=== PATIENT | male | born 1980 | race Two or more races ===

== ENCOUNTER → 2018-05-29 | Outpatient (CLI) | payer OTHER | LOC: M RAD 10:56 | DX: M47.892 Other spondylosis, cervical region (principal); M47.896 Other spondylosis, lumbar region | CPT/HCPCS: 72052 ==

== ENCOUNTER 2018-12-14 08:27 | Day surgery (SDC) | payer OTHER ==
[~2018-12-14] VITALS: Ht 165.1 cm; Wt 76.7 kg
[~2018-12-14 08:27] MED LIST: CYMB60CA3 PO; MELA1LIQ2 PO; NS 1,000 ML IV ONE
[2018-12-14] MEDS ORDERED: LIDOCAINE 2% INJ 100 MG/5 ML SDV (FOR ANES.) As Ordered ONE (08:44)
[2018-12-14] MEDS ORDERED: PROPOFOL 200 MG/20 ML VIAL As Ordered ONE (08:47)
--- NOTE | 2018-12-14 10:06 | ROOR ---
Patient Name: Paul Pandya Procedure Date: 12/14/2018 9:41 AM Date of : 1980 Age: 38 Room: [facility] Gender: Male Note Status: Finalized Procedure: Total Colonoscopy to Cecum + ileoscopy + Bx Indications: Change in bowel habits Providers: Vito Rowland MD Referring MD: CELINE KNIGHT MD Requesting Provider: Medicines: Monitored Anesthesia Care Complications: No immediate complications. Procedure: Pre-Anesthesia Assessment: - The heart rate, respiratory rate, oxygen saturations, blood pressure, adequacy of pulmonary ventilation, and response to care were monitored throughout the procedure. The Colonoscope was introduced through the anus and advanced to the cecum, identified by appendiceal orifice and ileocecal valve. The colonoscopy was performed without difficulty. The patient tolerated the procedure well. The quality of the bowel preparation was excellent. Findings: The perianal and digital rectal examinations were normal. Non-bleeding internal hemorrhoids were found during retroflexion. The hemorrhoids were small and Grade I (internal hemorrhoids that do not prolapse). No other significant abnormalities were identified in a careful examination of the remainder of the colon. The remainder of the exam in the terminal ileum was normal. Biopsies for histology were taken with a cold forceps from the ascending colon, transverse colon and descending colon for evaluation of microscopic colitis. Impression: - Non-bleeding internal hemorrhoids. - Biopsies were taken with a cold forceps from the ascending colon, transverse colon and descending colon for evaluation of microscopic colitis. - The exam was otherwise normal to the cecum. - The examined portion of the ileum was normal. Recommendation: - Patient has a contact number available for emergencies. The signs and symptoms of potential delayed complications were discussed with the patient. Return to normal activities tomorrow. Written discharge instructions were provided to the patient. - Discharge patient to home. - Continue present medications. - Await pathology results. - Telephone GI clinic for pathology results in 1 week. - Repeat colonoscopy at age 52 for screening purposes. - Return to referring physician. - The findings and recommendations were discussed with the patient's family. Vito Rowland MD Vito Rowland MD 12/14/2018 10:05:50 AM Electronically signed by Vito Rowland MD Number of Addenda: 0 Note Initiated On: 12/14/2018 9:41 AM Estimated Blood Loss: Estimated blood loss: none.
[2018-12-14 10:36] VITALS: BP 141/92
== END 2018-12-14 10:38 | disposition home or self-care (01) ==
LOC: M OPP 08:27
PROVIDERS: ATTEND Internal Medicine Gastroenterology
DX: K64.0 First degree hemorrhoids (principal); R19.4 Change in bowel habit